=== PATIENT | male | born 1995 | race African-American/Black ===

== ENCOUNTER 2023-11-25 13:49 | Outpatient (CLI) | payer OTHER, SELFPAY ==
--- NOTE | ~2023-11-25 | XR_ITS ---
XR hand RT min 3V Ordering provider: Pura Boyle PA-C History: . 4th MC base and hammate fx x 2 weeks . Comparison: None. FINDINGS: BONES: Fracture at the base of the fourth metacarpal bone. Possible fracture in the neck bone. Old suzi xer's fracture. Overlying cast is noted which make details of the bones is not clear. JOINT SPACES: Normal. SOFT TISSUES: Normal. IMPRESSION: Fracture at the base of the fourth metacarpal bone with possibility of fracture in the hamate bone. Reviewed, dictated and finalized at location A.
== END 2023-11-25 13:50 | disposition home or self-care (01) ==
PROVIDERS: Visit Provider Physician Assistant Surgical
DX: S62.314A Displaced fracture of base of fourth metacarpal bone, right hand, initial encounter for closed fracture (principal); X58.XXXA Exposure to other specified factors, initial encounter
CPT/HCPCS: 73130

== ENCOUNTER 2024-03-09 14:25 | Outpatient (CLI) | payer OTHER, SELFPAY ==
--- NOTE | ~2024-03-09 | XR_ITS ---
Right Hand Technique: PA, oblique, and lateral views were obtained. Clinical History: Fourth metacarpal fracture COMPARISON: 11/25/2023 Findings: Healing fracture of the base of the fourth metacarpal present, with stable alignment. Chron ic, healed fracture deformity of fifth metacarpal is unchanged. Joint spaces are preserved. Soft tiss ues are unremarkable. Impression: Healing fracture of the fourth metacarpal base. Chronic, healed fracture deformity of the fifth metacarpal. Reviewed, dictated and finalized at location M. O [employer] OFFICER Impression: Healing fracture of the fourth metacarpal base. Chronic, healed fracture deformity of the fifth metacarpal.
== END 2024-03-09 14:26 | disposition home or self-care (01) ==
PROVIDERS: PCP Plastic Surgery; Visit Provider Plastic Surgery
DX: S62.344D Nondisplaced fracture of base of fourth metacarpal bone, right hand, subsequent encounter for fracture with routine healing (principal); X58.XXXD Exposure to other specified factors, subsequent encounter
CPT/HCPCS: 73130

== ENCOUNTER 2024-07-06 13:22 | Outpatient (CLI) | payer OTHER, SELFPAY ==
--- NOTE | ~2024-07-06 | XR_ITS ---
EXAMINATION: XR hand RT min 3V DATE: 07/06/2024 13:37 INDICATION: Nondisplaced fracture at the base of the fourth metacarpal TECHNIQUE: Posteroanterior, oblique and lateral views of the right hand were obtained. COMPARISON: 03/09/2024 and 11/25/2023 FINDINGS: Old healed fracture deformity neck of the right fifth metacarpal. Additional more recent but now heal ed fracture deformity at the palmar base of the right fourth metacarpal. Small osteophytes along the ulnar side of the base of the right second fourth metacarpals which could be degenerative in etiology or related to old trauma to the collateral ligament complexes. Likely secondary moderate osteoarthri tis at the second metacarpophalangeal joint with irregular cortical contour along the head of the sec ond metacarpal hypertrophic change which suggests additional sequela of old trauma. Remaining joint s paces are normal. IMPRESSION: 1. Interval healing of the fracture at the palmar base of the right fourth metacarpal. 2. Additional old healed posterior medications as detailed above with likely secondary moderate osteo arthritis at the second metacarpophalangeal joint. Reviewed, dictated and finalized at location B. IMPRESSION: 1. Interval healing of the fracture at the palmar base of the right fourth meta carpal. 2. Additional old healed posterior medications as detailed above with likely se condary moderate osteoarthritis at the second metacarpophalangeal joint.
--- OUTSIDE RECORDS SUMMARY | 2024-07-06 14:38 | XMS_ITS | Clinical Summary ---
Author Organization [facility] Address [address] [place] [id number] Care Team Providers Care Lead Manufacturing Engineering Tech Name Role Phone Hesham Lennon MD, Fernando Primary Care Provider [phone] Social History Tobacco Use Types Packs/Day Years Used Date Smoking Tobacco: Never Assessed Sex and Gender Information Value Date Recorded Sex Assigned at Not on file Legal Sex Male 1:40 PM CDT Gender Identity Not on file Sexual Orientation Not on file Plan of Treatment Health Maintenance Due Date Last Done Comments Annual Physical 1997 Hepatitis C 2012 DTaP, Tdap and Td Vaccines ( 1 - Tdap) 2013 Hepatitis B Vaccines (1 of 3 - 19+ 3-dose series) 2013 COVID-19 Vaccine (2023-2 5 season) 2023 HPV Vaccines Aged Out No longer eligi ble based on patient's age to complete this topic Meningococcal B Vaccine Aged Out No l onger eligible based on patient's age to complete this topic Meningococcal Vaccine Aged Out No faina stew eligible based on patient's age to complete this topic Pneumococcal Vaccine: Pediat rics (0 to 5 Years) and At-Risk Patients (6 to 64 Years) Aged Out No longer eligible b ased on patient's age to complete this topic RSV Immunizations Under 20 Months Aged Out No longer eligible based on patient's age to complete this topic Insurance [employer] Care Teams Lead Manufacturing Engineering Tech Relationship Specialty Start Date End Date Fernando Dahl MD [facility] [address] [place] [address] PCP - General INTERNAL MEDICINE 01/10/24
--- OUTSIDE RECORDS SUMMARY | 2024-07-06 14:38 | XMS_ITS | Continuity of Care Document ---
Author Organization [facility] Address [address] [place] [address] Phone Care Team Providers Care Flying Squad Worker Name Role Phone Unavailable Unavailable Unavailable Procedures Procedure Date HOME VST NEW PT HI SEVERITY HOME VST EST PT LOW TO MOD SEVERITY OFFICE CONSULT, 15 MIN, 3 KE Y COMPS: PROB FOCUS HX; PROB FOCUS EXAM; STRTFWD Advance Directives Directive Yes / No Effective Date File Name No Information Encounters Encounter Description Practice Location Reason(s) For Visit Diagnoses Date Provider Providers Copied on Encounter HOME VST NEW PT HI SEVERITY [facility] , [address], [place], [id number], tel:[phone] [facility] [employer] No Information HOME VST EST PT LOW TO MOD SEVERITY [facility] , [address], [place], [id number], tel:[phone] [facility] OTHER [employer] 8 No Information OFFICE CONSULT, 15 MIN, 3 ROBLEDO COMPS: PROB FOCUS HX; PROB FOCUS EXAM; STRTFWD [facility] , [address] [place] [address], [id number], tel:[phone] [facility] [place] OTHER [employer] 8 No Information Family History Family Member Type Diagnosis Age At Onset No Information Payers Payer name Insurance type Covered constitution party ID Authoriza tion(s) No Information Social History Type Description Quantity Date Captured Comments Sex Male Smoking Status No Information Chief Complaint And Reason For Visit No Information Reason For Referral Reason For Referral No Information History Of Present Illness Encounter Date Complaint History Of Prese nt Illness No Information Functional Status Date Functional Assessmen t No Information Instructions Date Instruction Additional Infor mation No Information Assessments Type Assessment Date No Information Patient Care Teams Name Effective Dates (start - stop) Status Members No Information
== END 2024-07-06 13:23 | disposition home or self-care (01) ==
PROVIDERS: PCP Plastic Surgery; Visit Provider Plastic Surgery
DX: S62.344A Nondisplaced fracture of base of fourth metacarpal bone, right hand, initial encounter for closed fracture (principal); X58.XXXA Exposure to other specified factors, initial encounter
CPT/HCPCS: 73130